=== PATIENT | female | born 1965 | race Two or more races ===

== ENCOUNTER 2019-10-12 10:57 | Inpatient (IN) | payer OTHER ==
[2019-10-12] MEDS ORDERED: MAG HYDROX/AL HYDROX/SIMETH 30 ML UNIT-DOSE CUP PO ONE (12:09)
[2019-10-12] MEDS ORDERED: ACETAMINOPHEN 1000 MG/100 ML VIAL (NON FORMULARY) IVPB ONE (12:09)
[2019-10-12] MEDS ORDERED: SODIUM CHLORIDE 0.9% 500 ML INFUS.BAG IV ONE (12:09)
[2019-10-12] MEDS ORDERED: FAMOTIDINE 20 MG/50 ML IVPB 20 MG/50 ML MG IVPB ONE ×3 (12:09→22:03)
--- NOTE | 2019-10-12 12:11 | PDOC ---
History of Present Illness - General Chief Complaint: Pain Stated Complaint: ABD. PAIN/ VOMITING Time Seen by Provider: 10/12/19 11:35 History Source: Patient Exam Limitations: No Limitations - History of Present Illness Initial Comments: 10/12/19 21:22 54F PMH PUD presenting with 3 days of lower abdominal pain with vomiting and diarrhea after eating fish she prepared. Multiple episodes of nbnb emesis on the first day of sx only. Multiple episodes of diarrhea yesterday, one episode today; endorses mucus with small amount of blood mixed in (today and yesterday, less today). Endorses whole abdominal soreness 2/2 retching. PO tolerant - liquids and soups. Denies f/c, nausea. Endorses substernal burning. Denies sob, dysuria, hematuria. h/o total hysterectomy b/l oophrectomy. NKDA. Denies tobacco, etoh. Past History - Past Medical History Allergies/Adverse Reactions: Allergies Allergy/AdvReac Type Severity Reaction Status Date / Time No Known Drug Allergies Allergy Verified 12/10/14 16:42 Home Medications: Ambulatory Orders NK [No Known Home Medication] 10/12/19 Anemia: No Asthma: No Cancer: No Cardiac Disorders: No CVA: No COPD: No CHF: No Dementia: No Diabetes: No GI Disorders: No Disorders: No HTN: No Hypercholesterolemia: No Liver Disease: No Seizures: No Thyroid Disease: No - Surgical History Abdominal Surgery: No Appendectomy: No Cardiac Surgery: No Cholecystectomy: No Lung Surgery: No Neurologic Surgery: No Orthopedic Surgery: No - Psycho Social/Smoking Cessation Hx Smoking History: Never smoked Have you smoked in the past 12 months: No Information on smoking cessation initiated: No Hx Alcohol Use: No Drug/Substance Use Hx: No Substance Use Type: None Hx Substance Use Treatment: No Review of Systems - Review of Systems Able to Perform ROS?: Yes Comments:: 10/12/19 21:22 CONSTITUTIONAL: Denies F / C HEENT: Denies headache, lightheadedness, dizziness RESP: Denies SOB CARD: endorses substernal burning. Denies chest pain, palpitations GI: endorses lower abd pain w/ prior emesis. +loose stools w/ blood mixed in. Denies inability to tolerate PO : Denies dysuria, hematuria SKIN: Denies rashes NEURO: Denies numbness, tingling, weakness MSK: Denies back pain *Physical Exam - Vital Signs Last Vital Signs Temp Pulse Resp BP Pulse Ox 98.1 F 82 17 115/74 99 10/12/19 11:03 10/12/19 11:03 10/12/19 11:03 10/12/19 11:03 10/12/19 11:03 - Physical Exam 10/12/19 21:22 GEN: Well appearing, NAD, comfortable. AAOx3. HEENT: NC/AT. No facial asymmetry. Normal voice. Supple neck w/ FROM. CV: S1/S2, RRR, no m/r/g LUNG: CTAB, no wheezes, crackles, rales, rhonchi. GI: Mild-moderate TTP LLQ and suprapubic; mild TTP of LUQ . Soft, ndnt, +BS, no guarding, no rebound. No masses. Neg CVAT b/l. RECTAL: Exam chaperoned by NEVIN Renteria. No hemorrhoids, masses, lesions on inspection. no active bleeding or oozing from anus. Normal sphincter tone. No masses or nodules of the rectal vault palpated. No fecal impaction. No sanford blood on glove. MSK: No obvious deformities of all extremities. SKIN: Warm, dry, no rashes appreciated. PSYCH: Normal mood and affect, pleasant. NEURO: Moving all extremities well. ED Treatment Course - LABORATORY CBC & Chemistry Diagram: 10/12/19 13:03 10/12/19 13:03 - RADIOLOGY Radiology Studies Ordered: Category Date Time Status CHEST X-RAY PORTABLE* [RAD] Stat Radiology 10/12/19 12:05 Ordered Medical Decision Making - Medical Decision Making 10/12/19 12:11 54F PMH PUD presenting with 3 days of lower abdominal pain with vomiting and d iarrhea cleared for CT A/P w/o testing given h/o total hysterectomy DDX - infectious diarrhea, diverticulitis, bleeding ulcer - CBC, CMP, Lipase, Cardiac - EKG, CXR - meds - FOBT 10/12/19 14:03 pt improved s/p meds, fluids 10/12/19 17:49 CT report reviewed Impression: Concentric wall edema is seen along the length of the descending colon extending into the upper third of the sigmoid colon. The CT appearance is suggestive of nonspecific acute colitis - ? ischemic etiology given the distribution. Correlate clinically. Mild sigmoid diverticulosis is seen without definite evidence of acute diverticulitis. Trace pelvic free fluid. Status post hysterectomy. several subcentimeter right hepatic lobe hypodense foci are noted probably representing cyst on a statistical basis. Correlation with 3 month follow-up CT is suggested to document stability and lack of development pathology. GI c/s - pt sees Dr. Baca admit 10/12/19 19:18 // admitted d/w Dr. Vasques covering for Dr. Baca - NPO, bowel rest Discharge - Discharge Information Problems reviewed: Yes Clinical Impression/Diagnosis: Acute colitis Condition: Fair - Admission Yes - Follow up/Referral - Patient Discharge Instructions - Post Discharge Activity
[2019-10-12] MEDS ORDERED: ACETAMINOPHEN INJECTION 100 ML IVPB ONE (13:08)
[2019-10-12] MEDS ORDERED: MAG HYDROX/AL HYDROX/SIMETH 30 ML UNIT-DOSE CUP ONE ×2 (13:08→13:09)
[2019-10-12 13:41] LABS: BASO % 0.4 % (0-2.0); EOS % 2.3 % (0-4.5); HEMATOCRIT 36.7 % (32.4-45.2); HEMOGLOBIN 12.4 GM/dL (10.7-15.3); LYMPH % 26.9 % (8-40); MCH 29.8 pg (25.7-33.7); MCHC 33.7 g/dl (32.0-36.0); MEAN CELL VOLUME 88.5 fl (80-96); MEAN PLT VOLUME 7.2 fl (7.5-11.1); MONO % 6.8 % (3.8-10.2); NEUT % 63.6 % (42.8-82.8); PLATELET COUNT 304 K/MM3 (134-434); RBC 4.14 M/mm3 (3.60-5.2); RDW 13.4 % (11.6-15.6); WHITE BLOOD COUNT 8.5 K/mm3 (4.0-10.0)
[2019-10-12 14:23] LABS: ALBUMIN 3.4 g/dl (3.4-5.0); ALK PHOS 120 U/L (45-117); ANION GAP 6 MMOL/L (8-16); BLOOD UREA NITROGEN 12.7 mg/dL (7-18); CALCIUM 8.6 mg/dL (8.5-10.1); CHLORIDE 106 mmol/L (98-107); CO2 29 mmol/L (21-32); CREATININE 0.7 mg/dL (0.55-1.3); GLUCOSE,RANDOM 85 mg/dL (74-106); LIPASE 88 U/L (73-393); POTASSIUM 3.9 mmol/L (3.5-5.1); SGOT/AST 22 U/L (15-37); SGPT/ALT 21 U/L (13-61); SODIUM 141 mmol/L (136-145)
--- NOTE | 2019-10-12 15:15 | PDOC ---
Documentation entered by Dexter Lee SCRIBE, acting as scribe for Thomas Velez MD. Thomas Velez MD: This documentation has been prepared by the Jesus vazquez Nirvannie, SCRIBE, under my direction and personally reviewed by me in its entirety. I confirm that the documentation accurately reflects all work, treatment, procedures, and medical decision making performed by me. Attending Attestation - Resident Resident Name: GomezMacho - ED Attending Attestation I have performed the following: I have examined & evaluated the patient, The case was reviewed & discussed with the resident, I agree w/resident's findings & plan, Exceptions are as noted - HPI HPI: 10/12/19 13:26 CC: Lower abdominal pain, vomiting, diarrhea HPI: The patient is a 54 year old female, with a significant past medical history of peptic ulcer disease, who presents to the emergency department with 3 days of lower abdominal pain, vomiting, diarrhea. Patient notes her initial symptoms onset 3 days ago after eating fish as multiple episodes of NBNB emesis 3 days ago, multiple episodes of diarrhea yesterday with one today described as mucous like with minimal blood, and persistent abdominal discomfort. She denies recent dysuria, frequency, urgency or hematuria. Allergies: NKDA Primary Care Physician: Dr. Mabry - Physicial Exam PE: 10/15/19 14:16 Vitals: Triage Vital signs reviewed General Appearance: Generally disheveled week head: Atraumatic, Cardiac: Regular rate and rhythym, Lungs: Clear to auscultation bilateral, good air movement bilaterally, Abdomen: Soft, non distended, normal bowel sounds diffuse left-sided abdominal discomfort no rebound no guarding Extremities: Full range of motion to all extremities, no cyanosis, clubbing, or edema Skin: Warm and dry, no rashes or lesions, no rash, no petechiae Neuro: Moves all extremities generalized weakness Psych: Normal mood, normal affect - Medical Decision Making 10/12/19 13:26 54 year old female, with a significant past medical history of peptic ulcer disease, who presents to the emergency department with 3 days of lower abdominal pain, vomiting, diarrhea. Plan is: CBC CMP Lipase Stool occult Cardiac profile UA EKG Ofirmev Famotidine Mylanta Fluids 10/15/19 14:14 Dr. Galicia to follow up labs, CT reasses and dispo
[2019-10-12] MEDS ORDERED: CEFTRIAXONE 1 GM in DEXTROSE 5%-WATER - 100 ML IVPB ONE (17:38)
[2019-10-12] MEDS ORDERED: metroNIDAZOLE 500 MG TABLET PO ONE (17:38)
--- NOTE | 2019-10-12 17:49 | PDOC ---
*Physical Exam - Vital Signs Last Vital Signs Temp Pulse Resp BP Pulse Ox 98.1 F 82 17 115/74 99 10/12/19 11:03 10/12/19 11:03 10/12/19 11:03 10/12/19 11:03 10/12/19 11:03 ED Treatment Course - LABORATORY CBC & Chemistry Diagram: 10/12/19 13:03 10/12/19 13:03 - ADDITIONAL ORDERS Additional order review: Laboratory Results 10/12/19 10/12/19 13:55 13:03 Sodium 141 Potassium 3.9 Chloride 106 Carbon Dioxide 29 Anion Gap 6 L BUN 12.7 Creatinine 0.7 Est GFR (CKD-EPI)AfAm 114.65 Est GFR (CKD-EPI)NonAf 98.92 Random Glucose 85 Calcium 8.6 Total Bilirubin 1.0 AST 22 ALT 21 Alkaline Phosphatase 120 H Creatine Kinase 96 Troponin I < 0.02 Total Protein 7.0 Albumin 3.4 Lipase 88 Stool Occult Blood Negative 10/12/19 13:03 RBC 4.14 MCV 88.5 MCHC 33.7 RDW 13.4 MPV 7.2 L Neutrophils % 63.6 D Lymphocytes % 26.9 D Monocytes % 6.8 Eosinophils % 2.3 Basophils % 0.4 - Medications Given in the ED: ED Medications Discontinued Medications Generic Name Dose Route Start Last Admin Trade Name Alverto PRN Reason Stop Dose Admin Acetaminophen 1,000 mg 10/12/19 12:09 10/12/19 13:00 Ofirmev Injection - IVPB 10/12/19 12:10 1,000 mg ONCE ONE Administration Al Hydroxide/Mg Hydroxide 30 ml 10/12/19 12:10/12/19 12:35 Mylanta Oral Suspension - PO 10/12/19 12:10 30 ml ONCE ONE Administration Famotidine/Sodium Chloride 20 mg in 50 mls @ 100 mls/hr 10/12/19 12:09 10/12/19 13:00 Pepcid 20 Mg Premixed Ivpb - IVPB 10/12/19 12:38 100 mls/hr ONCE ONE Administration Sodium Chloride 1,000 ml 10/12/19 12:09 10/12/19 13:39 Normal Saline - IV 10/12/19 12:10 1,000 ml ONCE ONE Administration Medical Decision Making - Medical Decision Making 10/12/19 17:48 Vital Signs Temp Pulse Resp BP Pulse Ox 98.1 F 82 17 115/74 99 10/12/19 11:03 10/12/19 11:03 10/12/19 11:03 10/12/19 11:03 10/12/19 11:03 in summary, 54F PMH PUD presenting with 3 days of lower abdominal pain with vomiting and diarrhea after eating fish she prepared, a/w substernal burning.. Multiple episodes of nbnb emesis on the first day of sx only. Multiple episodes of diarrhea yesterday, one episode today; endorses mucus with small amount of blood mixed in (today and yesterday, less today). h/o total hysterectomy b/l oophrectomy. s/o from Dr Velez pending imaging at 430pm VS reviewed, wnl, normotensive. reassuring labs and lytes unremarkable. neg guaiac for blood CT with possible acute colitis, questionable ischemic etiology given distribution, concentric wall edema is noted along the length of the descending colon extending into the upper third of the sigmoid colon, no diverticulitis is seen, mild sigmoid diverticulosis noted, trace pelvic free fluid, status post hysterectomy, nonspecific hepatic lobe lesions. IV antibiotics including ceftriaxone and Flagyl for empiric coverage of her moderately sized colitis, GI consultation, bowel rest/IV fluid hydration, admission. admit to hospitalist service 10/12/19 18:46 Discharge - Discharge Information Problems reviewed: Yes Clinical Impression/Diagnosis: Acute colitis Condition: Fair - Admission Yes - Follow up/Referral - Patient Discharge Instructions - Post Discharge Activity
[2019-10-12] MEDS ORDERED: ONDANSETRON 4 MG/2 ML VIAL IVPUSH PRN (18:23)
--- NOTE | 2019-10-12 18:29 | HP ---
CHIEF COMPLAINT:Abd pain, vomiting PCP:Dr. Mabry HISTORY OF PRESENT ILLNESS: Cecilio Babb is a 54 yr old F, medical condition PUD, presented to ED with c/o lower abd pain, x 3 days after she ate fish that she cooked. non-bloody emesis, diarrhea x 1 days. pt reports she noted blood and mucous in diarrhea. pt denies chills, sob, fever, dizziness, headache, chest pain. complains of abd soreness from retching. ER course was notable for: (1)CT scan abd/pelvis possible acute colitis, questionable ischemic etiology (2) no leukocytosis, afebrile (3)occult stool Neg Recent Travel: PAST MEDICAL HISTORY: PUD PAST SURGICAL HISTORY: none Social History: Smoking:denies Alcohol:denies Drugs: denies Allergies No Known Drug Allergies Allergy (Verified 12/10/14 16:42) HOME MEDICATIONS: Home Medications Medication Instructions Recorded Acetaminophen W/ Codeine #3 1 - 2 tab PO Q4H PRN #30 tablet 12/19/14 [Tylenol # 3 -] REVIEW OF SYSTEMS CONSTITUTIONAL: Absent: fever, chills, diaphoresis, generalized weakness, malaise, loss of appetite, weight change HEENT: Absent: rhinorrhea, nasal congestion, throat pain, throat swelling, difficulty swallowing, mouth swelling, ear pain, eye pain, visual changes CARDIOVASCULAR: Absent: chest pain, syncope, palpitations, irregular heart rate, lightheadedness , peripheral edema RESPIRATORY: Absent: cough, shortness of breath, dyspnea with exertion, orthopnea, wheezing, stridor, hemoptysis GASTROINTESTINAL:+abd pain, nausea, vomiting, diarrhea, Absent: abdominal distension, constipation, melena, hematochezia GENITOURINARY: Absent: dysuria, frequency, urgency, hesitancy, hematuria, flank pain, genital pain MUSCULOSKELETAL: Absent: myalgia, arthralgia, joint swelling, back pain, neck pain SKIN: Absent: rash, itching, pallor HEMATOLOGIC/IMMUNOLOGIC: Absent: easy bleeding, easy bruising, lymphadenopathy, frequent infections ENDOCRINE: Absent: unexplained weight gain, unexplained weight loss, heat intolerance, cold intolerance NEUROLOGIC: Absent: headache, focal weakness or paresthesias, dizziness, unsteady gait, seizure, mental status changes, bladder or bowel incontinence PSYCHIATRIC: Absent: anxiety, depression, suicidal or homicidal ideation, hallucinations. PHYSICAL EXAMINATION Vital Signs - 24 hr 10/12/19 11:03 Temperature 98.1 F Pulse Rate 82 Respiratory 17 Rate Blood Pressure 115/74 O2 Sat by Pulse 99 Oximetry (%) GENERAL: Awake, alert, and fully oriented, in no acute distress. HEAD: Normal with no signs of trauma. EYES: Pupils equal, round and reactive to light, extraocular movements intact, sclera anicteric, conjunctiva clear. No lid lag. EARS, NOSE, THROAT: Ears normal, nares patent, oropharynx clear without exudates. Moist mucous membranes. NECK: Normal range of motion, supple without lymphadenopathy, JVD, or masses. LUNGS: Breath sounds equal, clear to auscultation bilaterally. No wheezes, and no crackles. No accessory muscle use. HEART: Regular rate and rhythm, normal S1 and S2 without murmur, rub or gallop. ABDOMEN: Soft, nontender, not distended, normoactive bowel sounds, no guarding, no rebound, no masses. No hepatomegaly or splenomegaly. MUSCULOSKELETAL: Normal range of motion at all joints. No bony deformities or tenderness. No CVA tenderness. UPPER EXTREMITIES: 2+ pulses, warm, well-perfused. No cyanosis. No clubbing. No peripheral edema. LOWER EXTREMITIES: 2+ pulses, warm, well-perfused. No calf tenderness. No peripheral edema. NEUROLOGICAL: Cranial nerves II-XII intact. Normal speech. Normal gait. PSYCHIATRIC: Cooperative. Good eye contact. Appropriate mood and affect. SKIN: Warm, dry, normal turgor, no rashes or lesions noted, normal capillary refill. Laboratory Results - last 24 hr 10/12/19 10/12/19 10/12/19 13:03 13:03 13:55 WBC 8.5 RBC 4.14 Hgb 12.4 Hct 36.7 MCV 88.5 MCH 29.8 MCHC 33.7 RDW 13.4 Plt Count 304 MPV 7.2 L Absolute Neuts (auto) 5.4 Neutrophils % 63.6 D Lymphocytes % 26.9 D Monocytes % 6.8 Eosinophils % 2.3 Basophils % 0.4 Nucleated RBC % 0 Sodium 141 Potassium 3.9 Chloride 106 Carbon Dioxide 29 Anion Gap 6 L BUN 12.7 Creatinine 0.7 Est GFR (CKD-EPI)AfAm 114.65 Est GFR (CKD-EPI)NonAf 98.92 Random Glucose 85 Calcium 8.6 Total Bilirubin 1.0 AST 22 ALT 21 Alkaline Phosphatase 120 H Creatine Kinase 96 Troponin I < 0.02 Total Protein 7.0 Albumin 3.4 Lipase 88 Stool Occult Blood Negative ASSESSMENT/PLAN: Cecilio Babb is a 54 yr old F, medical condition PUD admitted for Admitting Diagnosis Acute colitis Chronic conditon PUD #Acute Colitis -IVF Abt, rocephin, flagyl -GI consult (Phuong bautista in ED) -IVF -NPO -pepcid BID -antiemetics -CT abd/pelvis colitis poss ischemic etiology Full Code Dispo: requires inpatient treatment Visit type - Emergency Visit Emergency Visit: Yes Care time: The patient presented to the Emergency Department on the above date and was hospitalized for further evaluation of their emergent condition. - New Patient This patient is new to me today: Yes Date on this admission: 10/12/19 - Critical Care Critical Care patient: No
[2019-10-12] MEDS: SODIUM CHLORIDE 1,000 ML IV SCH (18:33)
[2019-10-12] MEDS ORDERED: CEFTRIAXONE 1 GM/50 ML BAG ONE (18:39)
[2019-10-12 18:44] LABS: URINE APPEARANCE CLEAR; URINE COLOR YELLOW
[2019-10-12 18:45] LABS: PH,URINE 5.5 (5.0-8.0); URINE BILIRUBIN NEGATIVE (NEGATIVE); URINE GLUCOSE (UA) NEGATIVE (NEGATIVE); URINE KETONE TRACE (NEGATIVE)
[2019-10-12 18:53] LABS: EPI CELLS 2.1 /HPF (0-5/HPF); HYALINE CASTS 0.35 /lpf (0-8); URINE BACTERIA 31.8 /hpf (NEGATIVE); URINE LEUK ESTERASE NEGATIVE (NEGATIVE); URINE NITRITE NEGATIVE (NEGATIVE); URINE PROTEIN NEGATIVE (NEGATIVE); URINE RBC 9.1 /hpf (0-4); URINE UROBILINOGEN 0.2 mg/dL (0.2-1.0); URINE WBC 2.7 /hpf (0-5)
[2019-10-12] MEDS: FAMOTIDINE 20 MG/50 ML IVPB 20 MG/50 ML MG IVPB SCH (22:04)
[2019-10-12 23:57] VITALS: BMI 26.6
[2019-10-13 08:05] LABS: ALBUMIN 3.1 g/dl (3.4-5.0); BILIRUBIN,TOTAL 0.8 mg/dL (0.2-1); CREATININE 0.6 mg/dL (0.55-1.3); MAGNESIUM 1.9 mg/dL (1.8-2.4); POTASSIUM 3.8 mmol/L (3.5-5.1); TOT PROT 6.4 g/dl (6.4-8.2)
[2019-10-13 08:06] LABS: HEMATOCRIT 32.9 % (32.4-45.2); HEMOGLOBIN 11.4 GM/dL (10.7-15.3); MCH 30.1 pg (25.7-33.7); MCHC 34.5 g/dl (32.0-36.0); MEAN CELL VOLUME 87.3 fl (80-96); MEAN PLT VOLUME 7.3 fl (7.5-11.1); PLATELET COUNT 276 K/MM3 (134-434); RBC 3.77 M/mm3 (3.60-5.2); RDW 12.8 % (11.6-15.6); WHITE BLOOD COUNT 6.6 K/mm3 (4.0-10.0)
[2019-10-13] MEDS ORDERED: DEXTROSE 5%-WATER - 50 ML IVPB ONE (10:02)
[2019-10-13] MEDS ORDERED: cefTRIAXone SODIUM 1 GM VIAL ONE (10:02)
[2019-10-13] MEDS ORDERED: PT OWN MED DRAWER 7, Y5N ONE ×2 (10:02→17:26)
[2019-10-13] MEDS: CEFTRIAXONE 1 GM in DEXTROSE 5%-WATER - 50 ML IVPB SCH (10:20)
[2019-10-13] MEDS: FAMOTIDINE 20 MG/50 ML IVPB 20 MG/50 ML MG IVPB SCH ×2 (10:21→21:20)
--- NOTE | 2019-10-13 10:30 | EKG ---
Test Reason : Blood Pressure : / mmHG Vent. Rate : 057 BPM Atrial Rate : 057 BPM P-R Int : 168 ms QRS Dur : 082 ms QT Int : 426 ms P-R-T Axes : 073 050 060 degrees QTc Int : 414 ms SINUS BRADYCARDIA OTHERWISE NORMAL ECG WHEN COMPARED WITH ECG OF 10-DEC-2014 17:15, NONSPECIFIC T WAVE ABNORMALITY NOW EVIDENT IN ANTERIOR LEADS Confirmed by Vikas Zamora MD ([id number]) on 10/13/2019 10:29:45 AM Referred By: Confirmed By:Vikas Zamora MD
--- NOTE | 2019-10-13 11:34 | PN ---
Progress Note, Physician History of Present Illness: feels better - Current Medication List Current Medications: Active Medications Sodium Chloride (Normal Saline -) 1,000 mls @ 75 mls/hr IV ASDIR CARMELITA Last Admin: 10/12/19 18:33 Dose: 75 mls/hr Documented by: Famotidine/Sodium Chloride (Pepcid 20 Mg Premixed Ivpb -) 20 mg in 50 mls @ 100 mls/hr IVPB BID CARMELITA Last Admin: 10/13/19 10:21 Dose: 100 mls/hr Documented by: Ceftriaxone Sodium 1 gm/ (Dextrose) 50 mls @ 100 mls/hr IVPB DAILY CARMELITA; Pro tocol Last Admin: 10/13/19 10:20 Dose: 100 mls/hr Documented by: Metronidazole (Flagyl 250mg Premixed Ivpb -) 250 mg in 50 mls @ 100 mls/hr IVPB Q8H-IV CARMELITA Last Admin: 10/13/19 01:11 Dose: 100 mls/hr Documented by: Ondansetron HCl (Zofran Injection) 4 mg IVPUSH Q6H PRN PRN Reason: NAUSEA - Objective Vital Signs: Vital Signs Temperature 98.3 F 10/13/19 10:27 Pulse Rate 70 10/13/19 10:27 Respiratory Rate 18 10/13/19 10:27 Blood Pressure 128/75 10/13/19 10:27 O2 Sat by Pulse Oximetry (%) 98 10/13/19 00:21 Cardiovascular: Yes: S1, S2 Respiratory: Yes: Regular, CTA Bilaterally Gastrointestinal: Yes: Normal Bowel Sounds, Soft, Tenderness (mild) Labs: CBC, BMP 10/13/19 06:35 10/13/19 06:35 Problem List - Problems (1) Acute colitis Assessment/Plan: IV ABX ID AND GI CONSULT IVF Code(s): K52.9 - NONINFECTIVE GASTROENTERITIS AND COLITIS, UNSPECIFIED
--- NOTE | 2019-10-13 13:02 | CON.GI ---
Consult Consult Specialty:: Gastroenterology ( covering Dr Baca) Referred by:: Dr Macho Gomez Reason for Consultation:: Abdominal pain - History of Present Illness Chief Complaint: Nausea, vomiting LLQ pain and bloody diarrhea History of Present Illness: 54F developed N/V, LLQ pain and bloody diarrhea on 10/09. The diarrhea stopped after 1 days as did her N/V. She had residual but much improved LLQ pain. The CT reveals diverticuli but no diverticulitis . The picture is more consistent with colitis. She denies recent travel or antibiotics. She informs me that she had a colonoscopy last year with Dr Phuong prieto was normal and rpeorts that she had a ulcer found on EGD in the past. She denies hematemesis and has no UGI pain. An uncle had pancreatic cancer. No FH of GI cancer. She generally moves her bowels well. - History Source History Provided By: Patient Limitations to Obtaining History: No Limitations - Past Medical History Cardio/Vascular: Yes: Hyperlipdemia Gastrointestinal: Yes: Diverticulosis, Peptic Ulcer Disease - Past Surgical History Past Surgical History: Yes: Breast Biopsy (benign right breast biopsy), Hysterectomy (open AURELIA for fibroids), Oopherectomy (bilateral laparoscopic in 2014) - Alcohol/Substance Use Hx Alcohol Use: No - Smoking History Smoking history: Never smoked Have you smoked in the past 12 months: No - Social History Usual Living Arrangement: With Significant Other ADL: Independent Occupation: works in grocery store Place of : Other ([place] Came to [place] (year): 1999 History of Recent Travel: No Home Medications - Allergies Allergies/Adverse Reactions: Allergies Allergy/AdvReac Type Severity Reaction Status Date / Time No Known Drug Allergies Allergy Verified 12/10/14 16:42 - Home Medications Home Medications: Ambulatory Orders NK [No Known Home Medication] 10/12/19 Family Medical History Other Family History: Mother has HTN, Uncle had pancreatic cancer Review of Systems - Review of Systems Constitutional: reports: No Symptoms Eyes: reports: No Symptoms HENT: reports: No Symptoms Neck: reports: No Symptoms Cardiovascular: reports: No Symptoms Respiratory: reports: No Symptoms Gastrointestinal: reports: Abdominal Pain, Diarrhea, Nausea, Rectal Bleeding, Vomiting Genitourinary: reports: No Symptoms Musculoskeletal: reports: No Symptoms Physical Exam-GI Vital Signs: Vital Signs Temperature 98.3 F 10/13/19 10:27 Pulse Rate 70 10/13/19 10:27 Respiratory Rate 18 10/13/19 10:27 Blood Pressure 128/75 10/13/19 10:27 O2 Sat by Pulse Oximetry (%) 98 10/13/19 00:21 CBC,CMP WBC 6.6 K/mm3 (4.0-10.0) 10/13/19 06:35 RBC 3.77 M/mm3 (3.60-5.2) 10/13/19 06:35 Hgb 11.4 GM/dL (10.7-15.3) 10/13/19 06:35 Hct 32.9 % (32.4-45.2) 10/13/19 06:35 MCV 87.3 fl (80-96) 10/13/19 06:35 MCH 30.1 pg (25.7-33.7) 10/13/19 06:35 MCHC 34.5 g/dl (32.0-36.0) 10/13/19 06:35 RDW 12.8 % (11.6-15.6) 10/13/19 06:35 Plt Count 276 K/MM3 (134-434) 10/13/19 06:35 MPV 7.3 fl (7.5-11.1) L 10/13/19 06:35 Absolute Neuts (auto) 5.4 K/mm3 (1.5-8.0) 10/12/19 13:03 Neutrophils % 63.6 % (42.8-82.8) D 10/12/19 13:03 Lymphocytes % 26.9 % (8-40) D 10/12/19 13:03 Monocytes % 6.8 % (3.8-10.2) 10/12/19 13:03 Eosinophils % 2.3 % (0-4.5) 10/12/19 13:03 Basophils % 0.4 % (0-2.0) 10/12/19 13:03 Nucleated RBC % 0 % (0-0) 10/12/19 13:03 Sodium 142 mmol/L (136-145) 10/13/19 06:35 Potassium 3.8 mmol/L (3.5-5.1) 10/13/19 06:35 Chloride 109 mmol/L (98-107) H 10/13/19 06:35 Carbon Dioxide 27 mmol/L (21-32) 10/13/19 06:35 Anion Gap 6 MMOL/L (8-16) L 10/13/19 06:35 BUN 8.0 mg/dL (7-18) 10/13/19 06:35 Creatinine 0.6 mg/dL (0.55-1.3) 10/13/19 06:35 Est GFR (CKD-EPI)AfAm 120.61 10/13/19 06:35 Est GFR (CKD-EPI)NonAf 104.06 10/13/19 06:35 Random Glucose 75 mg/dL (74-106) 10/13/19 06:35 Calcium 8.0 mg/dL (8.5-10.1) L 10/13/19 06:35 Magnesium 1.9 mg/dL (1.8-2.4) 10/13/19 06:35 Total Bilirubin 0.8 mg/dL (0.2-1) 10/13/19 06:35 AST 16 U/L (15-37) 10/13/19 06:35 ALT 17 U/L (13-61) 10/13/19 06:35 Alkaline Phosphatase 107 U/L (45-117) 10/13/19 06:35 Creatine Kinase 96 U/L (26-192) 10/12/19 13:03 Troponin I < 0.02 ng/ml (0.00-0.05) 10/12/19 13:03 Total Protein 6.4 g/dl (6.4-8.2) 10/13/19 06:35 Albumin 3.1 g/dl (3.4-5.0) L 10/13/19 06:35 Lipase 88 U/L (73-393) 10/12/19 13:03 Current Medications Generic Name Dose Route Start Last Admin Trade Name Freq PRN Reason Stop Dose Admin Sodium Chloride 1,000 mls @ 75 mls/hr 10/12/19 18:30 10/12/19 18:33 Normal Saline - IV 75 mls/hr ASDIR CARMELITA Administration Famotidine/Sodium Chloride 20 mg in 50 mls @ 100 mls/hr 10/12/19 22:00 10/13/19 10:21 Pepcid 20 Mg Premixed Ivpb - IVPB 100 mls/hr BID CARMELITA Administration Ceftriaxone Sodium 1 gm/ 50 mls @ 100 mls/hr 10/13/19 10:00 10/13/19 10:20 Dextrose IVPB 100 mls/hr DAILY CARMELITA Administration Protocol Metronidazole 250 mg in 50 mls @ 100 mls/hr 10/13/19 02:00 10/13/19 11:40 Flagyl 250mg Premixed Ivpb - IVPB 100 mls/hr Q8H-IV CARMELITA Administration Ondansetron HCl 4 mg 10/12/19 18:23 Zofran Injection IVPUSH Q6H PRN NAUSEA Constitutional: Yes: No Distress Eyes: Yes: Conjunctiva Clear HENT: Yes: Atraumatic Neck: Yes: Trachea Midline Cardiovascular: Yes: Regular Rate and Rhythm Respiratory: Yes: CTA Bilaterally Gastrointestinal Inspection: Yes: Scars (healed laparoscopic and Pfannensteil inicisions) ...Auscultate: Yes: Normoactive Bowel Sounds ...Palpate: Yes: Soft, Tenderness (mild LLQ tenderness) ...Percussion: Yes: Tympanitic ...Rectal Exam: Yes: Guaiac Positive (semisold brown guaiac positive stool) Edema: No Neurological: Yes: Alert, Oriented Labs: CBC, BMP 10/13/19 06:35 10/13/19 06:35 Problem List - Problems (1) Diverticulosis Code(s): K57.90 - DVRTCLOS OF INTEST, PART UNSP, W/O PERF OR ABSCESS W/O BLEED (2) History of peptic ulcer Code(s): Z87.11 - PERSONAL HISTORY OF PEPTIC ULCER DISEASE (3) Acute colitis Code(s): K52.9 - NONINFECTIVE GASTROENTERITIS AND COLITIS, UNSPECIFIED Assessment/Plan Impression: - Supsect infectious colitis as more likely than ischemic colitis given her age and lack of history of vascular problems. The latter however cannot be fully excluded given the bleeding and distribution -- Silent diverticular disease Plan: -- Will advance diet at tolerated -- Cultures are pending --Antibiotics were already started by the ER so continue Dr Baca will return 10/15/19
[2019-10-13] MEDS: SODIUM CHLORIDE 1,000 ML IV SCH (17:46)
[2019-10-14] MEDS ORDERED: PT OWN MED DRAWER 7, Y5N ONE ×4 (00:48→17:27)
[2019-10-14] MEDS ORDERED: cefTRIAXone SODIUM 1 GM VIAL ONE (09:03)
[2019-10-14] MEDS ORDERED: DEXTROSE 5%-WATER - 50 ML IVPB ONE (09:04)
[2019-10-14] MEDS: CEFTRIAXONE 1 GM in DEXTROSE 5%-WATER - 50 ML IVPB SCH (09:51)
[2019-10-14] MEDS: FAMOTIDINE 20 MG/50 ML IVPB 20 MG/50 ML MG IVPB SCH ×2 (09:51→21:55)
[2019-10-14] MEDS: SODIUM CHLORIDE 1,000 ML IV SCH (09:52)
--- NOTE | 2019-10-14 10:02 | PN ---
Progress Note, Physician - Current Medication List Current Medications: Active Medications Sodium Chloride (Normal Saline -) 1,000 mls @ 75 mls/hr IV ASDIR CARMELITA Last Admin: 10/14/19 09:52 Dose: 75 mls/hr Documented by: Famotidine/Sodium Chloride (Pepcid 20 Mg Premixed Ivpb -) 20 mg in 50 mls @ 100 mls/hr IVPB BID CARMELITA Last Admin: 10/14/19 09:51 Dose: 100 mls/hr Documented by: Ceftriaxone Sodium 1 gm/ (Dextrose) 50 mls @ 100 mls/hr IVPB DAILY CARMELITA; Protocol Last Admin: 10/14/19 09:51 Dose: 100 mls/hr Documented by: Metronidazole (Flagyl 250mg Premixed Ivpb -) 250 mg in 50 mls @ 100 mls/hr IVPB Q8H-IV CARMELITA Last Admin: 10/14/19 09:51 Dose: 100 mls/hr Documented by: Ondansetron HCl (Zofran Injection) 4 mg IVPUSH Q6H PRN PRN Reason: NAUSEA - Objective Vital Signs: Vital Signs Temperature 98 F 10/14/19 09:49 Pulse Rate 58 L 10/14/19 09:49 Respiratory Rate 18 10/14/19 09:49 Blood Pressure 127/68 10/14/19 09:49 O2 Sat by Pulse Oximetry (%) 99 10/13/19 21:00 Labs: CBC, BMP 10/13/19 06:35 10/13/19 06:35 Problem List - Problems (1) Acute colitis Code(s): K52.9 - NONINFECTIVE GASTROENTERITIS AND COLITIS, UNSPECIFIED
--- NOTE | 2019-10-14 10:47 | PN.GI ---
GI Progress Note Subjective: GI NOte ( covering Dr. Baca): Pain is decreased. No diarrhea. Hungry for food - Objective Vital Signs: Vital Signs Temperature 98 F 10/14/19 09:49 Pulse Rate 58 L 10/14/19 09:49 Respiratory Rate 18 10/14/19 09:49 Blood Pressure 127/68 10/14/19 09:49 O2 Sat by Pulse Oximetry (%) 99 10/13/19 21:00 Constitutional: Calm ...Auscultate: Yes: Normoactive Bowel Sounds ...Palpate: Yes: Soft, Other (nontender) Labs: CBC, BMP 10/13/19 06:35 10/13/19 06:35 Assessment/Plan Impression: - Infectious colitis is more likely than ischemic colitis given her age and lack of history of vascular problems. -- Silent diverticular disease Plan: -- Will advance diet to solids -- If tolerated can discharge -- Cultures are pending Dr Baca will return 10/15/19 Problem List - Problems (1) Acute colitis Code(s): K52.9 - NONINFECTIVE GASTROENTERITIS AND COLITIS, UNSPECIFIED (2) Bloody diarrhea Code(s): R19.7 - DIARRHEA, UNSPECIFIED (3) Diverticulosis Code(s): K57.90 - DVRTCLOS OF INTEST, PART UNSP, W/O PERF OR ABSCESS W/O BLEED (4) History of peptic ulcer Code(s): Z87.11 - PERSONAL HISTORY OF PEPTIC ULCER DISEASE (5) Intestinal infection due to bacteria causing bloody diarrhea Code(s): A04.9 - BACTERIAL INTESTINAL INFECTION, UNSPECIFIED
--- NOTE | 2019-10-14 11:25 | PN ---
Progress Note, Physician - Current Medication List Current Medications: Active Medications Famotidine/Sodium Chloride (Pepcid 20 Mg Premixed Ivpb -) 20 mg in 50 mls @ 100 mls/hr IVPB BID CARMELITA Last Admin: 10/14/19 09:51 Dose: 100 mls/hr Documented by: Ceftriaxone Sodium 1 gm/ (Dextrose) 50 mls @ 100 mls/hr IVPB DAILY CARMELITA; Protocol Last Admin: 10/14/19 09:51 Dose: 100 mls/hr Documented by: Metronidazole (Flagyl 250mg Premixed Ivpb -) 250 mg in 50 mls @ 100 mls/hr IVPB Q8H-IV CARMELITA Last Admin: 10/14/19 09:51 Dose: 100 mls/hr Documented by: Ondansetron HCl (Zofran Injection) 4 mg IVPUSH Q6H PRN PRN Reason: NAUSEA - Objective Vital Signs: Vital Signs Temperature 98 F 10/14/19 09:49 Pulse Rate 58 L 10/14/19 09:49 Respiratory Rate 18 10/14/19 09:49 Blood Pressure 127/68 10/14/19 09:49 O2 Sat by Pulse Oximetry (%) 99 10/13/19 21:00 Cardiovascular: Yes: Regular Rate and Rhythm Respiratory: Yes: Regular, CTA Bilaterally Gastrointestinal: Yes: Normal Bowel Sounds, Soft. No: Tenderness Labs: CBC, BMP 10/13/19 06:35 10/13/19 06:35 Problem List - Problems (1) Acute colitis Assessment/Plan: IV ABX ID AND GI CONSULT APPRECIATED IVF DIET ADVANCE PER GI Code(s): K52.9 - NONINFECTIVE GASTROENTERITIS AND COLITIS, UNSPECIFIED
--- NOTE | 2019-10-15 07:26 | DS ---
Physical Examination Vital Signs: Vital Signs Temperature 98.2 F 10/15/19 06:23 Pulse Rate 66 10/15/19 06:23 Respiratory Rate 20 10/15/19 06:23 Blood Pressure 102/66 10/15/19 06:23 O2 Sat by Pulse Oximetry (%) 100 10/14/19 21:00 Cardiovascular: Yes: Regular Rate and Rhythm Respiratory: Yes: Regular, CTA Bilaterally Gastrointestinal: Yes: Normal Bowel Sounds, Soft. No: Tenderness Labs: CBC, BMP 10/13/19 06:35 10/13/19 06:35 Discharge Summary Problems reviewed: Yes Reason For Visit: ACUTE COLITIS Current Active Problems Acute colitis (Acute) Bloody diarrhea (Acute) Diverticulosis (Acute) History of peptic ulcer (Acute) Intestinal infection due to bacteria causing bloody diarrhea (Acute) Hospital Course: - Problems (1) Acute colitis Assessment/Plan: IV ABX--WILL CHECK WITH ID IF PO NEEDED ID GI CONSULT APPRECIATED IVF DIET ADVANCE PER GI ON REGULAR AND TOLERATING WILL DC HOME TODAY Code(s): K52.9 - NONINFECTIVE GASTROENTERITIS AND COLITIS, UNSPECIFIED Condition: Stable - Instructions Referrals: George Mabry [Primary Care Provider] - 1 Week Disposition: HOME - Home Medications Comprehensive Discharge Medication List: Ambulatory Orders NK [No Known Home Medication] 10/12/19
[2019-10-15] MEDS ORDERED: cefTRIAXone SODIUM 1 GM VIAL ONE (09:46)
[2019-10-15] MEDS ORDERED: DEXTROSE 5%-WATER - 50 ML IVPB ONE (09:46)
[2019-10-15] MEDS ORDERED: PT OWN MED DRAWER 7, Y5N ONE ×2 (09:48→11:17)
[2019-10-15] MEDS: CEFTRIAXONE 1 GM in DEXTROSE 5%-WATER - 50 ML IVPB SCH (09:52)
[2019-10-15] MEDS: FAMOTIDINE 20 MG/50 ML IVPB 20 MG/50 ML MG IVPB SCH (10:19)
[2019-10-15 12:10] VITALS: BP 128/76; PULSE 70; TEMP 97.7
== END 2019-10-15 13:15 | disposition home or self-care (01) | DRG 249 ==
LOC: JER 10:57 → JERBED 17:55 → J8W 23:19
PROVIDERS: ADMIT Internal Medicine; ATTEND Family Medicine
DX: K52.9 Noninfective gastroenteritis and colitis, unspecified (principal); Z87.11 Personal history of peptic ulcer disease; E78.5 Hyperlipidemia, unspecified; K57.90 Diverticulosis of intestine, part unspecified, without perforation or abscess without bleeding; R10.32 Left lower quadrant pain
CPT/HCPCS: 36415; 71045-TC-FY; 74177-TC; 80053; 81003; 82272; 82550; 83690; 83735; 84484; 85025; 85027; 93005; 93010; 99285-25; J0131; J7030; Q9967

== ENCOUNTER 2021-06-02 13:05 | Emergency (ER) | payer OTHER ==
[2021-06-02 13:27] VITALS: TEMP 98.5; BMI 25.8
[2021-06-02] MEDS ORDERED: ACETAMINOPHEN 1000 MG/100 ML VIAL IVPB ONE (13:56)
[2021-06-02] MEDS ORDERED: FAMOTIDINE 20 MG/50 ML IVPB 20 MG/50 ML MG IVPB ONE ×2 (13:56→14:37)
[2021-06-02] MEDS ORDERED: MAG HYDROX/AL HYDROX/SIMETH -MYLANTA- ORAL SUSPENSION PO ONE (13:58)
[2021-06-02] MEDS ORDERED: ACETAMINOPHEN INJECTION 100 ML IVPB ONE (14:37)
[2021-06-02] MEDS ORDERED: MAG HYDROX/AL HYDROX/SIMETH 30 ML UNIT-DOSE CUP ONE (14:37)
[2021-06-02 15:08] LABS: BASO % 0.9 % (0-2.0); EOS % 2.9 % (0-4.5); HEMATOCRIT 35.1 % (32.4-45.2); HEMOGLOBIN 11.9 GM/dL (10.7-15.3); LYMPH % 34.3 % (8-40); MCH 29.6 pg (25.7-33.7); MCHC 33.9 g/dl (32.0-36.0); MEAN CELL VOLUME 87.3 fl (80-96); MEAN PLT VOLUME 6.7 fl (7.5-11.1); MONO % 8.4 % (3.8-10.2); NEUT % 53.5 % (42.8-82.8); PLATELET COUNT 311 10^3/uL (134-434); RBC 4.02 M/mm3 (3.60-5.2); RDW 13.5 % (11.6-15.6); WHITE BLOOD COUNT 6.1 K/mm3 (4.0-10.0)
[2021-06-02 15:25] LABS: CHLORIDE 109 mmol/L (98-107); SODIUM 141 mmol/L (136-145)
[2021-06-02 15:27] LABS: ALBUMIN 3.6 g/dl (3.4-5.0); ANION GAP 2 MMOL/L (8-16); BLOOD UREA NITROGEN 16.2 mg/dL (7-18); CALCIUM 9.1 mg/dL (8.5-10.1); CO2 30 mmol/L (21-32); GLUCOSE,RANDOM 87 mg/dL (74-106)
[2021-06-02 15:30] LABS: SGOT/AST 22 U/L (15-37); SGPT/ALT 25 U/L (13-61)
[2021-06-02 15:31] LABS: CREATININE 0.7 mg/dL (0.55-1.3)
[2021-06-02 15:32] LABS: BILIRUBIN,TOTAL 0.6 mg/dL (0.2-1); TOT PROT 7.1 g/dl (6.4-8.2)
[2021-06-02 15:33] LABS: ALK PHOS 108 U/L (45-117)
[2021-06-02 16:14] VITALS: BP 137/82; PULSE 80
== END 2021-06-02 16:14 | disposition home or self-care (01) ==
LOC: JER 13:05
PROC: 3E0333Z Introduction of Anti-inflammatory into Peripheral Vein, Percutaneous Approach (ICD-10-PCS; principal; 2021-06-02)
PROC: 3E033GC Introduction of Other Therapeutic Substance into Peripheral Vein, Percutaneous Approach (ICD-10-PCS; 2021-06-02)
DX: R07.9 Chest pain, unspecified (principal)
CPT/HCPCS: 36415; 71046-TC-FY; 80053; 82550; 84484; 85025; 93005; 93010; 99284-25; J0131